=== PATIENT | male | born 1955 | race Caucasian/White ===

== ENCOUNTER → 2017-08-01 | Outpatient (CLI) | payer OTHER ==
--- NOTE | 2017-08-01 17:45 | Diagnostic Imaging Report ---
EXAM: TESTICULAR/SCROTUM ULTRASOUND DATE: August 01, 2017. COMPARISON: None. INDICATION: 61-year-old male, right testicular pain. PROCEDURE: Two-dimensional grayscale , spectral Doppler and color Doppler ultrasound examination of the testes is performed. FINDINGS: Right testicle. The right testicle has normal contour and is without mass. There is flow. The right testicle measures 3.8 cm x 1.5 cm x 2.3 cm. Left testicle: The left testicle has normal contour and is without mass. There is flow. The left testicle measures 3.4 cm x 1.5 cm x 2.3 cm. There is no hypervascularity of the right or left epididymis. Color Doppler images provided do not well demonstrate flow within the right or left epididymis. The right and left epididymis are unremarkable in grayscale appearance. IMPRESSION: 1. No evidence of testicular torsion, orchitis, or epididymitis. 2. No intratesticular mass. Dictated by: Dictated on workstation # [id number]
== END ==
LOC: RAD 17:09
PROVIDERS: ATTEND Family Medicine
DX: N50.811 Right testicular pain (principal); Z85.46 Personal history of malignant neoplasm of prostate
CPT/HCPCS: 76870